=== PATIENT | male | born 1995 | race African-American/Black ===

== ENCOUNTER 2017-01-15 11:54 | Emergency (ER) | payer MEDICAID ==
[~2017-01-15] VITALS: Ht 180.3 cm; Wt 65.8 kg
[2017-01-15 12:00] VITALS: BP 126/81
== END 2017-01-15 12:46 | disposition home or self-care (01) ==
LOC: ER 11:57
DX: E10.65 Type 1 diabetes mellitus with hyperglycemia (principal)
CPT/HCPCS: 82962-TC; A4606; Z7610